=== PATIENT | male | born 1965 | race Caucasian/White ===

== ENCOUNTER → 2020-05-07 | Outpatient (CLI) | payer BC ==
[~2020-05-07] MED LIST: ALLEGRA-D 24 H1 EACH PO; ALLERGY INJECTIONS INJ; BENICAR40 MG PO; ECOTRIN325 MG PO; IBU800 MG PO; KEFLEX CAP 500500 MG PO; NORCO 10-325 T1 EACH PO; NORVASC10 MG PO; VITAMIN C 500500 MG PO; VITAMIN D250000 UNIT PO
== END ==
LOC: SLEEP 15:05
DX: G47.33 Obstructive sleep apnea (adult) (pediatric) (principal)
CPT/HCPCS: 95810